=== PATIENT | female | born 1950 | race Caucasian/White ===

== ENCOUNTER 2017-12-22 23:32 | Emergency (ER) | payer MEDICARE ==
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
== END 2017-12-23 00:23 | disposition home or self-care (01) ==
LOC: VM.ED 23:32
DX: S01.511A Laceration without foreign body of lip, initial encounter (principal); Z79.899 Other long term (current) drug therapy; I10 Essential (primary) hypertension
CPT/HCPCS: 12011; 12013; 99283; 99283-GF-25